=== PATIENT | male | born 1940 | race Caucasian/White ===

== ENCOUNTER 2016-06-22 12:15 | Outpatient (RCR) | payer MEDICARE | END 2016-07-24 | disposition still patient (30) | LOC: PT 12:15 | PROVIDERS: ATTEND Orthopaedic Surgery Orthopaedic Surgery of the Spine | DX: M54.5 Low back pain (principal); R26.2 Difficulty in walking, not elsewhere classified; R27.8 Other lack of coordination | CPT/HCPCS: 97001; 97110; 97112; G8978; G8979; G8980 ==

== ENCOUNTER 2016-09-06 10:22 | Emergency (ER) | payer MEDICARE, OTHER ==
[~2016-09-06] VITALS: Ht 180.3 cm; Wt 104.5 kg
[~2016-09-06 10:22] MED LIST changes: -LISI2.5T PO; -PRV20T PO
[2016-09-06 10:38] VITALS: RESP 18
[2016-09-06 10:40] LABS: BASOPHILS % (AUTO) 0 % (0-2); EOSINOPHILS # (AUTO) 0.3 10^3uL; EOSINOPHILS % (AUTO) 5 % (0-4); LYMPHOCYTES # (AUTO) 1.6 X10^3; MEAN CORPUSCULAR HEMOGLOBIN 30.2 PG (26.0-34.0); MEAN CORPUSCULAR HGB CONC 34.9 g/dL (31.0-37.0); MEAN CORPUSCULAR VOLUME 87 FL (80-100); MEAN PLATELET VOLUME 9.5 FL (6.0-9.5); MONOCYTES # (AUTO) 0.7 X10^3; MONOCYTES % (AUTO) 10 % (3-11); NEUTROPHILS # (AUTO) 4.1 X10^3; NEUTROPHILS % (AUTO) 61 % (51-67); PLATELET COUNT 172 10^3uL (150-450); WHITE BLOOD COUNT 6.77 10^3uL (4.0-11.0)
[2016-09-06 11:01] LABS: ALBUMIN 4.3 g/dL (3.4-5.0); TOTAL PROTEIN 7.4 g/dL (6.4-8.5)
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
[2016-09-06] MEDS ORDERED: LISI2.5T PO (11:39)
[2016-09-06] MEDS ORDERED: PRV20T PO (11:39)
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
[2016-09-06 14:15] LABS: BILIRUBIN,URINE Negative (Negative); CLARITY,URINE Clear; COLOR,URINE Yellow; GLUCOSE, URINE (UA) Negative (Negative); LEUKOCYTE ESTERASE ,URINE Negative (Negative)
[2016-09-06 14:17] VITALS: BP 116/51
== END 2016-09-06 14:18 | disposition home or self-care (01) ==
LOC: EDUNIT# 10:22 → ED 10:23
DX: G89.11 Acute pain due to trauma (principal); R10.32 Left lower quadrant pain; R10.31 Right lower quadrant pain; M54.2 Cervicalgia; V59.40XA Driver of pick-up truck or van injured in collision with unspecified motor vehicles in traffic accident, initial encounter; Y92.414 Local residential or business street as the place of occurrence of the external cause; Y93.89 Activity, other specified
CPT/HCPCS: 36415; 70450; 71010; 72125; 74177; 80053; 81003; 85025; 99283; Q9967; 93010; 99285

== ENCOUNTER → 2016-09-06 | Outpatient (CLI) | payer MEDICARE ==
[~2016-09-06] MED LIST: AMT10T PO; ASPI-586 PO; ASPI325T4 PO; ATN50T PO; AZIT250T5 PO; BISA-65 PO; CITA20TA12 PO; CLON1TAB3 PO; DOCU-34 PO; GUAI473L8 PO; INSU100V SC; LANTUS SOL100 UNIT/1 SQ; LEVO500T80 PO; LEVO750T39 PO; LISI2.5T PO; LISPRO; LORA10TA7 PO; MIRALAX 17 GM P17 GM PO; NF-FLON16G NSEACH; OMEP20TA PO; POLY255P PO; PRAV20TA PO; PRD10T PO; PRV20T PO; SOLI10TA2 PO; TAMS-8 PO
== END ==
LOC: EMS 10:15
PROVIDERS: ATTEND Emergency Medicine
DX: M54.2 Cervicalgia (principal); M54.5 Low back pain; V59.49XA Driver of pick-up truck or van injured in collision with other motor vehicles in traffic accident, initial encounter; Y92.414 Local residential or business street as the place of occurrence of the external cause